=== PATIENT | male | born 1955 | race Caucasian/White ===

== ENCOUNTER 2018-11-20 17:30 | Emergency (ER) | payer MEDICAID ==
[~2018-11-20] VITALS: Ht 188 cm; Wt 68.0 kg
[~2018-11-20 17:30] MED LIST: ALBU18HF2 INH; BENZ2TAB7 PO; CEPH500C2 PO; FURO-150 PO; GABA-534 PO; INSU100I25 SQ; LISI-600 PO; PRAZ1CAP5 PO; SULF1TAB49 PO; TAMS0.4C32 PO
[2018-11-20 18:14] VITALS: BP 124/75
[2018-11-20] MEDS ORDERED: SULF1TAB49 PO (18:46)
[2018-11-20] MEDS ORDERED: CEPH-572 PO (18:46)
== END 2018-11-20 18:58 | disposition home or self-care (01) ==
LOC: ER 17:30
DX: S81.802A Unspecified open wound, left lower leg, initial encounter (principal); S81.801A Unspecified open wound, right lower leg, initial encounter; L03.012 Cellulitis of left finger; L02.414 Cutaneous abscess of left upper limb; F19.10 Other psychoactive substance abuse, uncomplicated; E11.9 Type 2 diabetes mellitus without complications; M19.90 Unspecified osteoarthritis, unspecified site; F31.9 Bipolar disorder, unspecified; F10.10 Alcohol abuse, uncomplicated; F15.90 Other stimulant use, unspecified, uncomplicated; F11.90 Opioid use, unspecified, uncomplicated; Z86.19 Personal history of other infectious and parasitic diseases; Z56.0 Unemployment, unspecified; Z79.4 Long term (current) use of insulin; Z79.899 Other long term (current) drug therapy; X58.XXXA Exposure to other specified factors, initial encounter; Y93.89 Activity, other specified; Y92.89 Other specified places as the place of occurrence of the external cause; Y99.8 Other external cause status; Y90.9 Presence of alcohol in blood, level not specified
CPT/HCPCS: 10060; 82948; 99283

== ENCOUNTER 2020-07-05 20:46 | Emergency (ER) | payer MEDICAID ==
[~2020-07-05] VITALS: Ht 188 cm; Wt 77.3 kg
[~2020-07-05 20:46] MED LIST changes: -LISI-600 PO; +LISI20TA28 PO
[2020-07-05 20:49] VITALS: BP 143/110
== END 2020-07-05 22:31 | disposition home or self-care (01) ==
LOC: ER 20:47
DX: Z00.8 Encounter for other general examination (principal); M25.461 Effusion, right knee; E11.9 Type 2 diabetes mellitus without complications; M19.90 Unspecified osteoarthritis, unspecified site; F31.9 Bipolar disorder, unspecified; F15.90 Other stimulant use, unspecified, uncomplicated; F11.90 Opioid use, unspecified, uncomplicated; Z86.19 Personal history of other infectious and parasitic diseases; Z72.89 Other problems related to lifestyle; Z56.0 Unemployment, unspecified; Z79.2 Long term (current) use of antibiotics; Z79.899 Other long term (current) drug therapy
CPT/HCPCS: 99281

== ENCOUNTER 2020-08-23 19:13 | Emergency (ER) | payer MEDICAID ==
[~2020-08-23] VITALS: Ht 188 cm; Wt 77.2 kg
[2020-08-23 19:38] VITALS: BP 128/92
== END 2020-08-23 21:09 | disposition left against medical advice (07) ==
LOC: ER 19:14
DX: N49.2 Inflammatory disorders of scrotum (principal); Z53.21 Procedure and treatment not carried out due to patient leaving prior to being seen by health care provider
CPT/HCPCS: 71045